=== PATIENT | female | born 1990 | race Two or more races ===

== ENCOUNTER 2023-05-28 09:55 | Observation (INO) | payer OTHER | END 2023-05-28 11:44 | disposition home or self-care (01) | LOC: LDRP 09:55 | PROVIDERS: ADMIT Obstetrics & Gynecology; ATTEND Obstetrics & Gynecology | DX: O24.419 Gestational diabetes mellitus in pregnancy, unspecified control (principal); Z3A.33 33 weeks gestation of pregnancy | CPT/HCPCS: 59025; 76818; 81002; 82948; 82962; G0378 ==

== ENCOUNTER 2023-06-04 09:52 | Observation (INO) | payer OTHER ==
[2023-06-04] MEDS ORDERED: PREN-96 PO (10:13)
[2023-06-04] MEDS ORDERED: METF-370 PO (10:13)
== END 2023-06-04 11:09 | disposition home or self-care (01) ==
LOC: LDRP 09:52
PROVIDERS: ADMIT Obstetrics & Gynecology; ATTEND Obstetrics & Gynecology
DX: O24.419 Gestational diabetes mellitus in pregnancy, unspecified control (principal); Z3A.34 34 weeks gestation of pregnancy
CPT/HCPCS: 59025; 76818; 81002; 82948; 82962; G0378

== ENCOUNTER 2023-06-08 10:56 | Observation (INO) | payer OTHER ==
[~2023-06-08 10:56] MED LIST: METF-370 PO; PREN-96 PO
== END 2023-06-08 12:00 | disposition home or self-care (01) ==
LOC: LDRP 10:56 → UNDOADMOB 10:56 → LDRP 10:58
PROVIDERS: ADMIT Obstetrics & Gynecology; ATTEND Obstetrics & Gynecology
DX: O24.419 Gestational diabetes mellitus in pregnancy, unspecified control (principal); Z3A.35 35 weeks gestation of pregnancy
CPT/HCPCS: 59025; 76818; 81002; 82948; 82962; G0378

== ENCOUNTER 2023-06-11 09:09 | Observation (INO) | payer OTHER ==
[2023-06-11] MEDS ORDERED: GLYB2.5T8 PO (10:04)
== END 2023-06-11 10:25 | disposition home or self-care (01) ==
LOC: LDRP 09:09
PROVIDERS: ADMIT Obstetrics & Gynecology; ATTEND Obstetrics & Gynecology
DX: O24.419 Gestational diabetes mellitus in pregnancy, unspecified control (principal); Z3A.35 35 weeks gestation of pregnancy
CPT/HCPCS: 59025; 76818; 81002; 82948; 82962; 94760; G0378

== ENCOUNTER 2023-06-15 09:50 | Observation (INO) | payer OTHER ==
[~2023-06-15 09:50] MED LIST changes: +GLYB2.5T8 PO
== END 2023-06-15 12:17 | disposition home or self-care (01) ==
LOC: LDRP 10:30
PROVIDERS: ADMIT Obstetrics & Gynecology; ATTEND Obstetrics & Gynecology
DX: O24.419 Gestational diabetes mellitus in pregnancy, unspecified control (principal); Z3A.36 36 weeks gestation of pregnancy
CPT/HCPCS: 59025; 76818; 81002; 82948; 82962; G0378

== ENCOUNTER 2023-06-18 09:00 | Observation (INO) | payer OTHER | END 2023-06-18 10:52 | disposition home or self-care (01) | LOC: LDRP 09:00 | PROVIDERS: ADMIT Obstetrics & Gynecology; ATTEND Obstetrics & Gynecology | DX: O24.419 Gestational diabetes mellitus in pregnancy, unspecified control (principal); O62.9 Abnormality of forces of labor, unspecified; Z3A.40 40 weeks gestation of pregnancy | CPT/HCPCS: 59025; 76818; 81002; 82948; 82962; G0378 ==

== ENCOUNTER 2023-06-22 10:05 | Observation (INO) | payer OTHER | END 2023-06-22 12:05 | disposition home or self-care (01) | LOC: LDRP 10:05 | PROVIDERS: ADMIT Obstetrics & Gynecology; ATTEND Obstetrics & Gynecology | DX: O24.419 Gestational diabetes mellitus in pregnancy, unspecified control (principal); Z3A.37 37 weeks gestation of pregnancy | CPT/HCPCS: 59025; 76818; 81002; 82948; 82962; 94760; G0378 ==

== ENCOUNTER 2023-06-29 10:44 | Observation (INO) | payer OTHER | END 2023-06-29 11:58 | disposition home or self-care (01) | LOC: UNDOADMOB 10:44 → LDRP 10:44 → UNDODISOB 11:58 | PROVIDERS: ADMIT Obstetrics & Gynecology; ATTEND Obstetrics & Gynecology | DX: O24.419 Gestational diabetes mellitus in pregnancy, unspecified control (principal); O26.893 Other specified pregnancy related conditions, third trimester; R10.30 Lower abdominal pain, unspecified; Z3A.38 38 weeks gestation of pregnancy | CPT/HCPCS: 59025; 76818; 81002; 94760; G0378 ==

== ENCOUNTER 2023-07-05 04:03 | Inpatient (IN) | payer OTHER ==
[~2023-07-05] VITALS: Ht 162.6 cm; Wt 74.8 kg
[2023-07-05] MEDS: LACTATED RINGER'S 1,000 ML IV SCH ×2 (04:05→10:26)
[2023-07-05] MEDS ORDERED: ACCU-CHEK COMFORT CURVE STRIP VI SCH (04:17)
[2023-07-05] MEDS ORDERED: PROMETHAZINE HCL 25 MG/ML 1ML IV PRN (04:30)
[2023-07-05 04:42] LABS: Basophils # (auto) 0 10 ^3/uL (0-0.2); Basophils % (auto) 0.5 % (0.0-2.0); Eosinophils # (auto) 0.1 10 ^3/uL (0-0.8); Eosinophils % (auto) 0.5 % (0.0-7.0); Hematocrit 33.9 % (36.0-46.0); Hemoglobin 11.2 g/dL (12.2-16.2); Lymphocytes # (auto) 2.2 10 ^3/uL (0.4-5.4); Lymphocytes % (auto) 23.9 % (10.0-50.0); Mean Corpuscular Hemoglobin 27.3 pg (28.0-32.0); Mean Corpuscular Hgb Conc. 33.1 g/dL (32.0-36.0); Mean Corpuscular Volume 82.5 fL (80.0-100.0); Monocytes % (auto) 10.9 % (0.0-12.0); Neutrophils # (auto) 5.9 10 ^3/uL (1.6-8.6); Neutrophils % (auto) 64.2 % (37.0-80.0); Nucleated Red Blood Cells % 0.1 %; Red Blood Cells 4.11 10^6/uL (4.0-5.20); White Blood Cell 9.2 10^3/uL (4.4-10.8)
[2023-07-05 04:57] LABS: INR 0.92 (0.9-1.15); Partial Thromboplastin Time 25.4 SEC (24.5-34.5); Prothrombin Time 9.7 sec (9.3-11.8)
[2023-07-05 04:58] LABS: Alanine Aminotransferase 22 U/L (7-40); Albumin 3.9 g/dL (3.2-4.8); Alkaline Phosphatase 188 U/L (46-116); Anion Gap 10 (5-15); Aspartate Aminotransferase 30 U/L (13-40); BUN/Creatinine Ratio 11.7 (10.0-20.0); Bilirubin, Total 0.3 mg/dL (0.2-1.0); Blood Urea Nitrogen 7 mg/dL (9-23); Calcium 8.6 mg/dL (8.7-10.4); Carbon Dioxide 19 mmol/L (20-30); Chloride 107 mmol/L (98-107); Glucose 107 mg/dL (74-106); Potassium 3.8 mmol/L (3.5-5.1); Sodium 136 mmol/L (136-145); Total Protein 6.6 g/dL (5.7-8.2)
[2023-07-05] MEDS: miSOPROStol 50 MCG per PRE-CUT 1/2 TAB PO PRN ×2 (05:22→08:26)
[2023-07-05] MEDS ORDERED: WITCH HAZEL-GLYCERIN PAD TOP PRN (05:30)
[2023-07-05] MEDS ORDERED: LIDOCAINE 2%HCL (LOCAL ANESTH.) INJ 20ML MDV IJ PRN (05:30)
[2023-07-05] MEDS ORDERED: PHISODERM TOP SOLN 240ML BTL TOP PRN (05:30)
[2023-07-05] MEDS ORDERED: DERMOPLAST 60ML BOTTLE TOP PRN (05:30)
[2023-07-05 06:35] LABS: Urine Bacteria NONE SEEN /hpf (None Seen); Urine Blood Negative /uL (Negative); Urine Clarity Clear (Clear); Urine Color Colorless (Yellow); Urine Protein, UAD Negative (Negative); Urine Specific Gravity 1.015 (1.001-1.035); Urine Urobilinogen Normal (Negative); Urine WBC 1 /hpf (0 - 5); Urine pH 6.5 (5.0-8.0)
[2023-07-05 06:43] LABS: Amphetamine Screen, Urine Neg (NEGATIVE)
[2023-07-05 06:45] LABS: Barbiturate Scree,Urine Neg (NEGATIVE); Benzodiazephine Screen, Urine Neg (NEGATIVE); Cocaine Screen, Urine Neg (NEGATIVE)
[2023-07-05] MEDS ORDERED: LACT. RINGERS/OXYTOCIN 20UNITS 1,000 ML IV SCH (06:45)
[2023-07-05] MEDS ORDERED: LACT. RINGERS/OXYTOCIN 20UNITS 500 ML IV ONE ×2 (06:45→07:15)
[2023-07-05] MEDS ORDERED: TERBUTALINE SULFATE 1 MG/ML 1ML VIAL SC PRN (06:45)
[2023-07-05 06:46] LABS: Cannabinoid Screen, Urine Neg (NEGATIVE); Opiate Scree,Urine Neg (NEGATIVE); Phencyclidine Screen, Urine Neg (NEGATIVE)
[2023-07-05] MEDS ORDERED: LACTATED RINGER'S 1,000 ML IV ONE (16:00)
[2023-07-05] MEDS ORDERED: ePHEDrine SULFATE 50 MG/ML AMP IV ONE (16:00)
[2023-07-05] MEDS ORDERED: NALOXONE HCL 0.4 MG/ML VIAL IV ONE (16:00)
[2023-07-05] MEDS ORDERED: fentaNYL CITRATE 100 MCG/2 ML VL IV ONE (16:00)
[2023-07-05] MEDS ORDERED: LIDOCAINE HCL 2 %PF INJ 10ML AMP IJ ONE (16:00)
[2023-07-05] MEDS ORDERED: ROPIVACAINE HCL 200 ML EPI SCH ×2 (16:00→17:00)
[2023-07-05] MEDS ORDERED: ROPIVACAINE HCL 100 ML ONE (16:07)
[2023-07-05] MEDS ORDERED: METHYLERGONOVINE MALEATE 0.2 MG/ML AMP IM ONE (18:18)
[2023-07-05] MEDS ORDERED: ONDANSETRON HCL 4 MG/2 ML VIAL ONE (18:33)
[2023-07-05] MEDS ORDERED: ONDANSETRON HCL 4 MG/2 ML VIAL IV PRN (18:45)
[2023-07-05] MEDS ORDERED: IBUPROFEN 600 MG TAB PO PRN (19:45)
[2023-07-05] MEDS ORDERED: ACETAMINOPHEN 325 MG TAB PO PRN (19:45)
[2023-07-05 23:25] VITALS: BP 119/65; PULSE 63; RESP 16; TEMP 97.6; O2SAT 97
[2023-07-06] MEDS ORDERED: MEASLES, MUMPS & RUBELLA VAC(MMRII) 0.5ML SC ONE (01:30)
[2023-07-06] MEDS ORDERED: MAALOX PLUS or MAALOX 30 ML PO ONE (02:15)
[2023-07-06 03:15] VITALS: BP 114/71; PULSE 86; RESP 16; TEMP 98.1; O2SAT 96
[2023-07-06 07:20] VITALS: BP 113/74; PULSE 80; RESP 16; TEMP 97.9; O2SAT 97
[2023-07-06 11:00] VITALS: BP 116/76; PULSE 85; RESP 17; TEMP 97.6; O2SAT 95
[2023-07-06 15:00] VITALS: BP 114/69; PULSE 83; RESP 16; TEMP 97.4; O2SAT 96
[2023-07-06 19:16] VITALS: BP 122/90; PULSE 83; RESP 18; TEMP 97.8; O2SAT 100
== END 2023-07-06 20:38 | disposition home or self-care (01) | DRG 807 ==
LOC: LDRP 04:03
PROVIDERS: ADMIT Obstetrics & Gynecology; ATTEND Obstetrics & Gynecology
PROC: 10E0XZZ Delivery of Products of Conception, External Approach (ICD-10-PCS; principal; 2023-07-05)
PROC: 3E0P7VZ Introduction of Hormone into Female Reproductive, Via Natural or Artificial Opening (ICD-10-PCS; 2023-07-05)
PROC: 3E0R3BZ Introduction of Anesthetic Agent into Spinal Canal, Percutaneous Approach (ICD-10-PCS; 2023-07-05)
PROC: 00HU33Z Insertion of Infusion Device into Spinal Canal, Percutaneous Approach (ICD-10-PCS; 2023-07-05)
PROC: 0UQMXZZ Repair Vulva, External Approach (ICD-10-PCS; 2023-07-05)
PROC: 3E0DXGC Introduction of Other Therapeutic Substance into Mouth and Pharynx, External Approach (ICD-10-PCS; 2023-07-05)
DX: O24.429 Gestational diabetes mellitus in childbirth, unspecified control (principal); Z37.0 Single live birth; O69.81X0 Labor and delivery complicated by cord around neck, without compression, not applicable or unspecified; O71.82 Other specified trauma to perineum and vulva; Z3A.39 39 weeks gestation of pregnancy
CPT/HCPCS: 36415; 59409; 62282; 80053; 80307; 81001; 82948; 82962; 85025; 85610; 85730; 86850; 86900; 86901; 90471; 94760; 96360; 96361; 96365; 96366; 96372; 96374; G0378; J2405; J2590